=== PATIENT | male | born 1995 | race Caucasian/White ===

== ENCOUNTER 2022-02-23 13:31 | Emergency (ER) | payer OTHER, SELFPAY ==
[2022-02-23 14:33] VITALS: BP 136/78; PULSE 68; RESP 18; TEMP 37.1; O2SAT 99; BMI 39.3
[2022-02-23 15:07] LABS: MANUAL DIFF FLAG NO
[2022-02-23 15:08] LABS: Basophils Percent Auto 0.5 % (0-2); Eosinophils Absolute Auto 0.2 X10*3/uL (0.0-0.4); Eosinophils Percent Auto 2.2 % (0-4); Hematocrit 44.4 % (42.0-52.0); Hemoglobin 14.7 g/dl (14.0-18.0); Imm Gran Abs Auto 0.02 X10*3/uL (0.00-0.03); Imm Gran Pct Auto 0.3 % (0.0-0.4); Lymphocytes Absolute Auto 1.9 X10*3/uL (1.2-4.9); Lymphocytes Percent Auto 24.2 % (20-40); Mean Corpuscular HGB Conc 33.1 g/dl (31.0-36.0); Mean Corpuscular Hemoglobin 27.8 pg (27.0-33.0); Mean Corpuscular Volume 83.9 fL (80.0-98.0); Mean Platelet Volume 9.8 fL (9.4-12.4); Monocytes Absolute Auto 0.8 X10*3/uL (0.1-1.2); Neutrophils Absolute Auto 4.7 x10*3/uL (2.0-8.3); Neutrophils Percent Auto 61.8 % (45-73); Platelet Count 235 X10*3/uL (160-400); Red Blood Count 5.29 X10*6/uL (4.60-5.80); Red Cell Distribution Width 12.7 % (11.0-16.0); White Blood Count 7.6 X10*3/uL (4.8-10.8)
[2022-02-23 15:12] LABS: Appearance Urine CLEAR; Color Urine STRAW; Glucose Urine UA NEG (NEG); Leukocyte Esterase Urine NEG (NEG); Nitrite Urine NEG (NEG); Specific Gravity - Urine <= 1.005 (1.005-1.025); Urine Blood NEG (NEG); Urine Ketones NEG (NEG); Urine Protein NEG (NEG-TRACE)
[2022-02-23 15:13] LABS: INTERNATIONAL NORM RATIO 1.1 (0.9-1.1); Prothrombin Time 12.9 SEC (9.9-13.0)
[2022-02-23 15:16] LABS: Partial Thromboplastin Time 37.1 SEC (24.1-38.0)
[2022-02-23 15:25] LABS: Lactic Acid 1.2 mmol/L (0.5-2.0)
[2022-02-23 15:29] LABS: Alanine Aminotransferase 20 U/L (0-40); Albumin Level 4.3 g/dL (3.5-5.0); Alkaline Phosphatase 71 U/L (39-117); Anion Gap 13 (12-20); Aspartate Amino Transferase 17 U/L (5-37); Bilirubin Total 0.5 mg/dL (0.0-1.0); Blood Urea Nitrogen 12 mg/dL (9-16); Calcium 9.4 mg/dL (8.4-10.2); Carbon Dioxide 26 mmol/L (22-29); Chloride 105 mmol/L (96-108); Creatinine Clr Calc Pharmacy 162.8; Estimated Glomerular Filt Rate > 60; Glucose Random 105 mg/dL (60-115); Magnesium 2.1 mg/dL (1.6-2.6); Sodium 140 mmol/L (135-145); Total Protein 7.6 g/dL (6.5-8.0)
--- NOTE | 2022-02-23 16:21 | ED.GENADULT ---
HPI - General Adult General Chief complaint: Abdominal Pain Stated complaint: BLOODY STOOL, PAIN ABD Time Seen by Provider: 02/23/22 13:39 History of Present Illness HPI narrative: Patient is a 26-year-old male present today with having brown stool but when he wipes he sees some blood. Also noted some blood in the toilet bowl. History of similar episodes in past history of anal fissure in the past. Question history of hemorrhoids and a half. There is no fever no chills no systemic complaints. Patient denies any abdominal pain. Has positive formed stool that is brown. Patient from home. No foreign bodies. Related Data Home Medications Medication Instructions Recorded Confirmed cetirizine 10 mg tablet 10 mg PO DAILY PRN 01/07/22 02/12/22 betamethasone dipropionate 0.05 % 1 appl TOPICAL DAILY 02/12/22 02/12/22 topical ointment betamethasone valerate 0.1 % 1 appl TOPICAL DAILY 02/12/22 02/12/22 topical ointment glycopyrrolate 1 mg tablet 1 mg PO BID-TID PRN 02/12/22 02/12/22 (Lynne) Previous Rx's Medication Instructions Recorded blood pressure test kit-large #1 ea 02/12/22 fluticasone propionate 50 1 spray INTRANASAL DAILY 30 Days 02/12/22 mcg/actuation nasal #16 g spray,suspension (Flonase Allergy Relief) omeprazole 20 mg capsule,delayed 20 mg PO DAILY 14 Days #14 cap 02/12/22 release prednisone 10 mg tablet 10 mg PO DAILY 4 Days #4 tab 02/12/22 Allergies Allergy/AdvReac Type Severity Reaction Status Date / Time No Known Allergies Allergy Verified 02/23/22 14:33 [No Known Allergies*] Review of Systems Review of Systems: No fever no chills no chest pain or shortness breath no systemic Yes all other systems are reviewed and are negative PMFSH Past Medical History Attestation statement: The following information was validated with the patient. Medical History Body mass index [BMI] 40.0-44.9, adult Class 3 severe obesity due to excess calories with body mass index (BMI) of 40.0 to 44.9 in adult Infectious mononucleosis Surgical History S/P wisdom tooth extraction Family History Family History Mother Neurological finding Father FH: HTN (hypertension) Hyperthyroidism Sister Asthma Maternal Grandfather Heart attack, Onset Age: 55 Social History Social History Housing: House Alcohol intake: current Alcohol intake frequency: holidays/special occasions only Alcohol type: beer Patient Tobacco Use Status: Never used Tobacco e-Cigarette/Vaping Use: Former Use Substance Use Type: Marijuana service: No Current occupational status: employed 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 Oriented X3. No acute distress. Eyes: Pupils equal, round and reactive to light. ENT: Pharynx normal. Neck: Normal inspection. Neck supple. No lymph nodes noted. No crepitus CVS: Normal heart rate and rhythm. Pulses normal. Normal S1 and S2 Respiratory: No respiratory distress. Breath sounds normal. No Wheezing. No rales Abdomen: Soft and nontender. No rigidity. No distention. good BS x4 Skin: Skin warm and dry. Normal skin color. Normal skin turgor. Extremities: No lower extremity edema. Neurovascular intact to all extremities. No Lacerations. No Rash Neuro: Oriented X 3. No motor deficit. No sensory deficit. Moving all extermities. No slurred speech Medical Decision Making MDM Narrative Medical decision making narrative: Patient's hemoglobin is 14.5 normal. Well-appearing not on blood thinners. 26 years old abdomen soft nontender. Will have patient follow-up with primary physician outpatient basis question hemorrhoids internal. Question seizures. In stable condition with discharge Lab Data Lab results reviewed: Yes I reviewed the patient's lab results. Result diagrams: 02/23/22 15:00 02/23/22 15:00 Labs: Lab Results 02/23/22 02/23/22 02/23/22 Range/Units 15:00 15:00 15:00 WBC 7.6 (4.8-10.8) X10*3/uL RBC 5.29 (4.60-5.80) X10*6/uL Hgb 14.7 (14.0-18.0) g/dl Hct 44.4 (42.0-52.0) % MCV 83.9 (80.0-98.0) fL MCH 27.8 (27.0-33.0) pg MCHC 33.1 (31.0-36.0) g/dl RDW 12.7 (11.0-16.0) % Plt Count 235 (160-400) X10*3/uL MPV 9.8 (9.4-12.4) fL Immature Gran % (Auto) 0.3 (0.0-0.4) % Neut % (Auto) 61.8 (45-73) % Lymph % (Auto) 24.2 (20-40) % Carter % (Auto) 11.0 (2-11) % Eos % (Auto) 2.2 (0-4) % Baso % (Auto) 0.5 (0-2) % Lymph # (Auto) 1.9 (1.2-4.9) X10*3/uL Carter # (Auto) 0.8 (0.1-1.2) X10*3/uL Eos # (Auto) 0.2 (0.0-0.4) X10*3/uL Baso # (Auto) 0.0 (0.0-0.2) X10*3/uL Abs Immat Gran (auto) 0.02 (0.00-0.03) X10*3/uL Absolute Neuts (auto) 4.7 (2.0-8.3) x10*3/uL Absolute Nucleated RBC 0.000 (0.0-0.012) X10*3/uL Nucleated RBC % (auto) 0.0 (0.0-0.2) /100WBC PT 12.9 (9.9-13.0) SEC INR 1.1 (0.9-1.1) APTT 37.1 (24.1-38.0) SEC Sodium 140 (135-145) mmol/L Potassium 4.0 (3.3-5.1) mmol/L Chloride 105 (96-108) mmol/L Carbon Dioxide 26 (22-29) mmol/L Anion Gap 13 (12-20) BUN 12 (9-16) mg/dL Creatinine 0.89 (0.5-1.4) mg/dL Estim Creat Clear Calc 162.8 Estimated GFR > 60 Random Glucose 105 (60-115) mg/dL Lactic Acid (0.5-2.0) mmol/L Calcium 9.4 (8.4-10.2) mg/dL Magnesium 2.1 (1.6-2.6) mg/dL Total Bilirubin 0.5 (0.0-1.0) mg/dL AST 17 (5-37) U/L ALT 20 (0-40) U/L Alkaline Phosphatase 71 (39-117) U/L Total Protein 7.6 (6.5-8.0) g/dL Albumin 4.3 (3.5-5.0) g/dL Urine Color Urine Appearance Urine pH (5.0-8.0) Ur Specific Harrison (1.005-1.025) Urine Protein (NEG-TRACE) MG/DL Urine Glucose (UA) (NEG) MG/DL Urine Ketones (NEG) MG/DL Urine Blood (NEG) Urine Nitrite (NEG) Ur Leukocyte Esterase (NEG) 02/23/22 02/23/22 Range/Units 15:00 15:00 WBC (4.8-10.8) X10*3/uL RBC (4.60-5.80) X10*6/uL Hgb (14.0-18.0) g/dl Hct (42.0-52.0) % MCV (80.0-98.0) fL MCH (27.0-33.0) pg MCHC (31.0-36.0) g/dl RDW (11.0-16.0) % Plt Count (160-400) X10*3/uL MPV (9.4-12.4) fL Immature Gran % (Auto) (0.0-0.4) % Neut % (Auto) (45-73) % Lymph % (Auto) (20-40) % Carter % (Auto) (2-11) % Eos % (Auto) (0-4) % Baso % (Auto) (0-2) % Lymph # (Auto) (1.2-4.9) X10*3/uL Carter # (Auto) (0.1-1.2) X10*3/uL Eos # (Auto) (0.0-0.4) X10*3/uL Baso # (Auto) (0.0-0.2) X10*3/uL Abs Immat Gran (auto) (0.00-0.03) X10*3/uL Absolute Neuts (auto) (2.0-8.3) x10*3/uL Absolute Nucleated RBC (0.0-0.012) X10*3/uL Nucleated RBC % (auto) (0.0-0.2) /100WBC PT (9.9-13.0) SEC INR (0.9-1.1) APTT (24.1-38.0) SEC Sodium (135-145) mmol/L Potassium (3.3-5.1) mmol/L Chloride (96-108) mmol/L Carbon Dioxide (22-29) mmol/L Anion Gap (12-20) BUN (9-16) mg/dL Creatinine (0.5-1.4) mg/dL Estim Creat Clear Calc Estimated GFR Random Glucose (60-115) mg/dL Lactic Acid 1.2 (0.5-2.0) mmol/L Calcium (8.4-10.2) mg/dL Magnesium (1.6-2.6) mg/dL Total Bilirubin (0.0-1.0) mg/dL AST (5-37) U/L ALT (0-40) U/L Alkaline Phosphatase (39-117) U/L Total Protein (6.5-8.0) g/dL Albumin (3.5-5.0) g/dL Urine Color STRAW Urine Appearance CLEAR Urine pH 7.0 (5.0-8.0) Ur Specific Harrison <= 1.005 (1.005-1.025) Urine Protein NEG (NEG-TRACE) MG/DL Urine Glucose (UA) NEG (NEG) MG/DL Urine Ketones NEG (NEG) MG/DL Urine Blood NEG (NEG) Urine Nitrite NEG (NEG) Ur Leukocyte Esterase NEG (NEG) Discharge Plan Discharge Clinical Impression: Hemorrhoid Patient Disposition: Home, Self-Care Instructions: Hemorrhoids (ED) Prescriptions: No Action betamethasone valerate 0.1 % ointment 1 appl topical DAILY 0RF glycopyrrolate [Robinul] 1 mg tablet 1 mg PO BID-TID PRN0RF betamethasone dipropionate 0.05 % ointment 1 appl topical DAILY 0RF omeprazole 20 mg capsule,delayed release(DR/EC) 20 mg PO DAILY 14 Days Qty: 14 0RF (DME) blood pressure test kit-large Kit See Rx Instructions .Route Qty: 1 0RF Rx Instructions: As directed fluticasone propionate [Flonase Allergy Relief] 50 mcg/actuation spray,suspension 1 spray intranasal DAILY 30 Days Qty: 16 1RF Rx Instructions: administer into each nostril prednisone 10 mg tablet 10 mg PO DAILY 4 Days Qty: 4 0RF cetirizine 10 mg tablet 10 mg PO DAILY PRN (Reason: allergies) 0RF Referrals: Luke Begum PA-C [Primary Care Provider] -
== END 2022-02-23 16:56 | disposition home or self-care (01) ==
LOC: HO.ED 16:37
PROVIDERS: Physician Assistant Medical; Emergency Provider Emergency Medicine Emergency Medical Services; PCP Physician Assistant
DX: K64.9 Unspecified hemorrhoids (principal); K92.1 Melena; Z79.899 Other long term (current) drug therapy
CPT/HCPCS: 36415; 80053; 81003; 83605; 83735; 85025; 85610; 85730; 99283

== ENCOUNTER 2022-05-21 09:45 | Outpatient (REF) | payer OTHER, SELFPAY ==
[2022-05-21 11:00] LABS: Estimated Average Glucose 88 mg/dL; Hematocrit 45.9 % (42.0-52.0); Hemoglobin A1c % 4.7 %; Mean Corpuscular HGB Conc 32.7 g/dl (31.0-36.0); Mean Corpuscular Hemoglobin 28.1 pg (27.0-33.0); Mean Corpuscular Volume 86.1 fL (80.0-98.0); Mean Platelet Volume 10.5 fL (9.4-12.4); Platelet Count 197 X10*3/uL (160-400); Red Blood Count 5.33 X10*6/uL (4.60-5.80); Red Cell Distribution Width 12.8 % (11.0-16.0); White Blood Count 5.6 X10*3/uL (4.8-10.8)
[2022-05-21 11:50] LABS: Alanine Aminotransferase 19 U/L (0-40); Albumin Level 4.4 g/dL (3.5-5.0); Alkaline Phosphatase 59 U/L (39-117); Anion Gap 15 (12-20); Aspartate Amino Transferase 17 U/L (5-37); Bilirubin Total 0.7 mg/dL (0.0-1.0); Blood Urea Nitrogen 12 mg/dL (9-16); Calcium 9.5 mg/dL (8.4-10.2); Carbon Dioxide 26 mmol/L (22-29); Chloride 106 mmol/L (96-108); Estimated Glomerular Filt Rate > 60; Glucose Fasting 99 mg/dL (60-99); Potassium 4.5 mmol/L (3.3-5.1); Sodium 142 mmol/L (135-145); Total Protein 7.5 g/dL (6.5-8.0)
[2022-05-21 11:56] LABS: TSH reflex Free T4 1.08 uIU/mL (0.32-4.0)
[2022-05-23 13:25] LABS: Transglutaminase Ab IgG <1.0 U/mL; Transglutaminase IgA <1.0 U/mL
== END 2022-05-21 09:46 | disposition home or self-care (01) ==
LOC: HO.LAB 09:45
PROVIDERS: PCP Physician Assistant; Visit Provider Physician Assistant
DX: Z13.29 Encounter for screening for other suspected endocrine disorder (principal); R14.0 Abdominal distension (gaseous); K52.9 Noninfective gastroenteritis and colitis, unspecified
CPT/HCPCS: 36415; 80053; 83036; 84443; 85027; 86364

== ENCOUNTER 2023-05-11 14:12 | Outpatient (AMB) | payer OTHER, SELFPAY ==
--- NOTE | 2023-05-11 15:22 | MHC.OFFWIV ---
Intake Vital Signs 05/11/23 15:31 Weight 227 lb BP 130/80 Blood Pressure Location Lt brachial Position Sitting Pulse 71 Pulse Source Pulse Oximeter Temp 99.1 F Temp Source Oral Pulse Oximetry (%) 98 Oxygen Delivery Method Room Air Intake Visit Reasons: EP fever, throat [phone] Intake Note: Patient here for sore throat, fevers, aches, chills, slight chest congestion and slight cough for about 2 days. Patient Tobacco Use Status: Former Tobacco user (over 4 years ago.) Quit Date: 2018 Allergies No Known Allergies [No Known Allergies*] Allergy (Verified 05/11/23 15:23) Do you need a note to return to daycare/school/sports/work: Yes HPI EP fever, throat [phone] HPI Details Patient presents for a sick visit. Reporting symptoms of sinus congestion, sore throat and difficulty swallowing. Low-grade fever. No family member is sick. No recent travel. Patient reports symptoms of malaise and fatigue. [facility] Medical History (Updated 05/11/23 @ 15:55 by Bandar Edwards MD) Body mass index [BMI] 40.0-44.9, adult Class 3 severe obesity due to excess calories with body mass index (BMI) of 40.0 to 44.9 in adult Infectious mononucleosis Surgical History S/P wisdom tooth extraction Family History Mother Neurological finding Father FH: HTN (hypertension) Hyperthyroidism Sister Asthma Maternal Grandfather Heart attack, Onset Age: 55 Social History (Updated 02/25/23 @ 10:48 by Luke Begum PA-C) Housing: House Alcohol intake: current Alcohol intake frequency: a few times a week Alcohol type: beer Patient Tobacco Use Status: Former Tobacco user (over 4 years ago.) Quit Date: 2018 Tobacco use type: Cigarette e-Cigarette/Vaping Use: Currently Using Second Hand Smoke Exposure: Yes Substance Use Type: Marijuana service: No Current occupational status: employed 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 Cognitive needs: No Hearing needs: No Vision needs: Yes Physical Exam Vital Signs: Last Vital Signs Temp 99.1 F 05/11/23 15:31 Pulse 71 05/11/23 15:31 BP 130/80 05/11/23 15:31 Pulse Ox 98 05/11/23 15:31 Oxygen Delivery Method Room Air 05/11/23 15:31 Const General: cooperative and healthy appearing Nutritional Appearance: well nourished Orientation/consciousness: patient oriented x3 Limitations: no limitations HEENT Head: Yes normal to inspection Eyes General: appearance normal, both eyes and all related structures Neck Neck: Yes normal visual inspection Chest Chest palpation & inspection: normal palpation of entire chest wall Resp Effort & Inspection: normal respiratory effort Neuro General: patient oriented x3 Results AMB Rapid Strep AMB Rapid Strep Negative Last Edit by VIVIEN Thao on 05/11/23 15:39 Results Reviewed Results Reviewed: Laboratory Last Values Strep Scn [facility] Negative 05/11/23 15:38 Assessment & Plan Assessment & Plan (1) Upper respiratory tract infection: Code(s): J06.9 - Acute upper respiratory infection, unspecified Plan: Antibiotics ordered. Increase fluid intake. Tylenol for aches and pains. If symptoms worsen, follow-up here for a recheck. Orders: Orders SARS-CoV2/FLU/RSV Today R43.9 - Unspecified disturbances of smell and taste AMB Rapid Strep Screen Today Z13.9 - Encounter for screening, unspecified Coding Level of Care Code Est Pt Level 3 (90073) Diagnoses Upper respiratory tract infection J06.9
[2023-05-11 15:31] VITALS: BP 130/80; PULSE 71; TEMP 37.3; O2SAT 98
== END 2023-05-11 15:55 | disposition home or self-care (01) ==
PROVIDERS: PCP Physician Assistant; Visit Provider Internal Medicine
DX: J06.9 Acute upper respiratory infection, unspecified (principal); J02.9 Acute pharyngitis, unspecified
CPT/HCPCS: 87880; 99213

== ENCOUNTER 2023-05-11 17:22 | Outpatient (REF) | payer OTHER, SELFPAY ==
[2023-05-12 14:06] LABS: Influenza A PCR NEGATIVE (Negative); Influenza B PCR NEGATIVE (Negative); Resp Syncy Virus RNA Qual PCR NEGATIVE (Negative); SARS COV2 PCR INHOUSE NEGATIVE (Negative)
== END 2023-05-11 17:23 | disposition home or self-care (01) ==
LOC: HO.LAB 17:22
PROVIDERS: Visit Provider Internal Medicine
DX: Z20.822 Contact with and (suspected) exposure to COVID-19 (principal); R43.9 Unspecified disturbances of smell and taste
CPT/HCPCS: 0241U

== ENCOUNTER 2024-05-25 11:19 | Outpatient (AMB) | payer OTHER, SELFPAY ==
--- NOTE | 2024-05-25 10:44 | A.OFFPC_ITS ---
Vital Signs 05/25/24 11:22 Height 5 ft 9 in Weight 230 lb 8 oz BMI 34.0 BP 130/86 Blood Pressure Location Lt brachial Position Sitting Pulse 53 Pulse Source Pulse Oximeter Pulse Oximetry (%) 98 Oxygen Delivery Method Room Air Intake Visit Reasons: annual exam Intake Note: Patient is here today for a physical. 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 Accompanied by: Self / Same As Patient Allergies No Known Allergies [No Known Allergies*] Allergy (Verified 05/25/24 11:29) Medication List - Last Reconciled 05/25/24 by Luke Begum PA-C betamethasone valerate 0.1% 1 appl topical DAILY blood pressure test kit-large As directed cetirizine 10 mg PO DAILY PRN fluticasone propionate 50 mcg/actuation (Flonase Allergy Relief) 1 spray intranasal DAILY 30 days glycopyrrolate 1 mg PO BID 30 days Tobacco use date assessed: 05/25/24 Dental Screening Dental Screen Date: 05/25/24 Did you have a dental visit in the last 12 months?: Yes Did you have a dental problem in the last 6 months where you did not have access to dental care?: No Was dental information given to patient?: Patient has dentist HPI annual exam HPI Details Patient is a 29-year-old male here today for a PE. Patient has a past medical history significant for obesity, psoriasis,? al lergic rhinitis. Concerns--> has been having left 5th digit knuckle pain over the last few years. He does admit to doing weight lifting and working with his hands a lot. He can not recall any particular recent trauma to the left hand. He has not tried any NSAIDs for his pain at this point. He is interested in getting a x-ray of the area .. .. Psoriasis:? Skin medications mostly over hands to which he uses a topical steroid cream with good effect.? He is followed by biology manager . .. Allergic rhintis:? Suffers from seasonal allergic rhinitis.? He he does use Flonase and Zyrtec on a daily basis. Vaccine: UTD with tetanus, COVID annual flu vaccine FORMERLY [facility] Medical History Infectious mononucleosis Body mass index [BMI] 40.0-44.9, adult Class 3 severe obesity due to excess calories with body mass index (BMI) of 40.0 to 44.9 in adult Surgical History S/P wisdom tooth extraction Family History Mother Neurological finding Father FH: HTN (hypertension) Hyperthyroidism Sister Asthma Maternal Grandfather Heart attack, Onset Age: 55 Social History (Updated 05/25/24 @ 11:32 by Luke Begum PA-C) Housing: House Alcohol intake: current Alcohol intake frequency: a few times a week Alcohol type: beer Patient Tobacco Use Status: Former Tobacco user (over 4 years ago.) Tobacco use type: Cigarette e-Cigarette/Vaping Use: Currently Using Second Hand Smoke Exposure: Yes Substance Use Type: Marijuana service: No Current occupational status: employed 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 1. Little interest or pleasure in doing things: not at all 2. Feeling down, depressed, or hopeless: not at all 3. Trouble falling or staying asleep, or sleeping too much: not at all 4. Feeling tired or having little energy: not at all 5. Poor appetite or overeating: not at all 6. Feeling bad about yourself - or that you are a failure or have let yourself or your family down: not at all 7. Trouble concentrating on things, such as reading the newspaper or watching television: not at all 8. Moving or speaking so slowly that other people could have noticed. Or the opposite - being so fidgety or restless that you have been moving around a lot more than usual: not at all 9. Thoughts that you would be better off or of hurting yourself in some way: not at all Total score: 0 Depression Screening Interpretation: Negative Depression Screening Done: Yes 97362 - PHQ-9 Billing: Yes Source: Developed by Drs. Sonny Cruz, Cristina Ortega, Rafael Jo and colleagues, with an educational jamin from [employer]. Thrive Questionnaire Date Thrive assessed: 05/25/24 I am a: Patient What is your living situation today?: I have a steady place to live Within the past 12 months, did the food you bought not last and you didn't have the money to get more?: Never true Within the past 12 months, did you worry whether your food would run out before you got money to buy more?: Never true Do you have trouble paying for medicines?: No Do you have trouble getting transportation to medical appointments?: No Do you have trouble paying your heating and electricity bill?: No Do you have trouble taking care of your child, family member or friend?: No Do you have trouble with day-to-day activities such as bathing, preparing meals, shopping, managing finances, etc.?: No Are you currently unemployed and looking for a job?: No Are you interested in more education?: No Please select the resources that you would like help with: None Currently or been in a relationship where the following occur: No concerns rep orted THRIVE Score: 0 AUDIT C Alcohol Use Questionnaire (AUDIT-C) 1. How often do you have a drink containing alcohol?: 2-3 times a week 2. How many drinks containing alcohol do you have on a typical day when you are drinking?: 1 or 2 Total Score: 3 RANDI-7 AMB Questionnaire RANDI-7 Date RANDI - 7 assessed: 05/25/24 Feeling nervous, anxious, or on edge: 0 = Not at all Not being able to stop or control worryin = Not at all Worrying too much about different things: 0 = Not at all Trouble relaxin = Not at all Being so restless that it is hard to sit still: 0 = Not at all Becoming easily annoyed or irritable: 0 = Not at all Feeling afraid as if something awful might happen: 0 = Not at all Total RANDI-7 score (0-4 normal; 5-9 mild; 10-14 moderate; 15-21 severe): 0 Source: Developed by Drs. Sonny Cruz, Cristina Ortega, Rafael Jo and colleagues, with an educational jamin from [employer]. RANDI-7 Assessment Billing RANDI-7 Assessment Tool: RANDI-7 Assessment 61179 Review of Systems Const Denies body aches, Denies chills, Denies excessive sweating, Denies fatigue, Denies fever(s) and Denies headache(s) Eyes Denies blurry vision ENT Denies dysphagia, Denies vertigo, Denies dizziness, Denies headache(s), Denies hearing loss and Denies tinnitus Card Denies chest pain, Denies chest pain with activity, Denies syncope, Denies irregular heart rhythm and Denies dyspnea Resp Denies chest congestion, Denies cough, Denies hemoptysis, Denies dyspnea and Denies wheezing GI Denies abdominal pain, Denies melena, Denies hematochezia, Denies coffee ground emesis, Denies dysphagia, Denies diarrhea, Denies nausea and Denies vomiting Denies difficulty urinating, Denies dysuria, Denies urinary frequency, Denies urinary hesitancy and Denies urinary urgency Musc Denies arthralgias, Denies limited range of motion, Denies muscle cramps and Denies muscle weakness Skin/Breast Denies rash and Denies skin ulcer Neuro Denies Abnormal speech present, Denies confusion, Denies vertigo, Denies dizziness, Denies syncope, Denies headache(s), Denies memory loss and Denies seizure-like activity Psych Denies anxiety, Denies confusion, Denies depression, Denies memory loss, Denies panic attacks and Denies paranoia Endo Denies excessive sweating, Denies fatigue, Denies flushing, Denies polydipsia and Denies polyuria Aller/Immun Denies wheezing Physical exam (Primary Care) Vital Signs: Last Vital Signs Pulse 53 05/25/24 11:22 BP 130/86 05/25/24 11:22 Pulse Ox 98 05/25/24 11:22 Oxygen Delivery Method Room Air 05/25/24 11:22 BMI result Body Mass Index 34.0 Tobacco/Smoking Status: Tobacco use Status Tobacco use date assessed 05/25/24 05/25/24 11:29 Patient Tobacco Use Status Former Tobacco user (over 4 05/25/24 11:32 years ago.) Tobacco use type Cigarette 05/25/24 11:32 e-Cigarette/Vaping Use Currently Using 05/25/24 11:32 PHQ-9: PHQ-9 Score PHQ-9: Total score 0 05/25/24 11:33 Depression Screening Interpretation: Negative Thrive Assessment: Date of Thrive Assessment Date Thrive assessed 05/25/24 05/25/24 11:24 Currently or been in a relationship where the following occur: No concerns reported Const General: cooperative, comfortable, no acute distress, alert and awake; No confusion Orientation/consciousness: oriented to person, oriented to place, patient oriented x3 and No confusion HENMT Head: Yes normocephalic Ears: external ears normal and TM's normal bilaterally Face and sinus: No sinus tenderness Mouth: Normal oral and palatal mucosa present and tongue normal Teeth and gingiva: dentition normal and gingiva normal Throat: Yes posterior oropharynx normal, Yes tonsils normal and Yes uvula midline Eyes Conjunctivae: conjunctivae normal Sclerae: sclerae normal Pupils: Equal, round and reactive pupils present EOM: EOMs intact bilaterally Direct Ophthalmoscopy: No no photophobia Neck Neck: Yes no lymphadenopathy, No tender and Yes no JVD Thyroid: Thyroid normal Carotids: no bruits Chest Chest palpation & inspection: no tenderness Resp Effort & Inspection: normal respiratory effort, no audible wheezes, not labored and no stridor Auscultation: no crackles, no rales, no rhonchi and no wheezes Cardio Jugular venous distension: no JVD Rate: regular rate, not bradycardic and not tachycardic Rhythm: regular rhythm Bruits: no carotid bruits Peripheral pulses: Peripheral pulses 2+ throughout GI Inspection: Yes normal to inspection, No abdominal wall ecchymosis and No visible herniation Palpation (GI): Soft to palpation, nontender, no guarding, not rigid and No hepatosplenomegaly present Auscultation: normoactive bowel sounds General: Yes no CVA tenderness Back/Spine/Pelvis Back: no CVA tenderness and No back tenderness Cervical Spine: cervical ROM normal Thoracic/Lumbar Spine: thoracic and lumbar spine normal to inspection, straight leg raise negative bilaterally, No thoraco-lumbar ROM limited and No lumbar spinal tenderness Skin Lesions: no lesions Rashes: no rashes Wounds: no wounds Neuro General: oriented to person, oriented to place, patient oriented x3, CN's II-XI intact bilaterally and No confusion Cranial nerves: Yes Equal, round and reactive pupils present and Yes Normal accommodation reflex present Cognition (Neuro): normal cognition Speech: No Abnormal speech present Gait exam (Neuro): Normal gait present Motor exam (neuro): 5/5 motor strength present throughout Extrem Right upper extremity: full ROM; no cyanosis Left upper extremity: full ROM; no cyanosis Right lower extremity: no edema Left lower extremity: no edema Psych Appearance: grossly normal Mental Status: mental status grossly normal Affect: normal affect Attitude: cooperative Thought process: Normal thought process present Assessment and Plan Assessment & Plan (1) Annual physical exam: Code(s): Z00.00 - Encounter for general adult medical examination without abnormal findings (2) Psoriasis: Code(s): L40.9 - Psoriasis, unspecified Plan: 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 Continues to follow dermatology (3) Screening for diabetes mellitus (DM): Code(s): Z13.1 - Encounter for screening for diabetes mellitus (4) Allergic rhinitis: Code(s): J30.9 - Allergic rhinitis, unspecified Qualifiers: Allergic rhinitis seasonality: seasonal Allergic rhinitis trigger: pollen Qualified Code(s): J30.1 - Allergic rhinitis due to pollen Plan: Patient maintains his allergic rhinitis antihistamine and nasal spray. (5) Left hand tendonitis: Code(s): M77.8 - Other enthesopathies, not elsewhere classified Plan: As per HPI patient would like to get an x-ray of the affected joint to evaluate. We did offer occupational therapy and orthopedic referral for his possible tendinitis of the 5th digit flexor tendon though he would like to hold off now. Orders: Orders Microalbumin, Random (w Creat) Today I10 - Essential (primary) hypertension Comprehensive [place]. Panel Fast Today Z13.1 - Encounter for screening for diabetes mellitus Complete Blood Count no Diff Today Z13.1 - Encounter for screening for diabetes mellitus XR hand LT 2V Today M77.8 - Other enthesopathies, not elsewhere classified Medications: Refilled cetirizine take 1 tablet by mouth daily as needed for allergies 10 mg PO DAILY PRN 90 t abs 0RF allergies fluticasone propionate 50 mcg/actuation (Flonase Allergy Relief) administer into each nostril 1 spray intranasal DAILY 16 grams 3RF 30 days J30.9 - Allergic rhinitis, unspecified Coding Level of Care Code Est Pt Prev Care 18-39y(26457) Diagnoses Annual physical exam Z00.00 Psoriasis L40.9 Screening for diabetes mellitus (DM) Z13.1 Seasonal allergic rhinitis due to pollen J30.1 Allergic rhinitis seasonality: seasonal Allergic rhinitis trigger: pollen Left hand tendonitis M77.8 Additional Codes RANDI-7 Assessment Billing - RANDI-7 Assessment Tool: RANDI-7 Assessment 44887 ([id number])
[2024-05-25 11:22] VITALS: BP 130/86; PULSE 53; O2SAT 98; BMI 34.0
== END 2024-05-25 11:47 | disposition home or self-care (01) ==
PROVIDERS: PCP Physician Assistant; Visit Provider Physician Assistant
DX: Z00.00 Encounter for general adult medical examination without abnormal findings (principal); L40.9 Psoriasis, unspecified; Z13.1 Encounter for screening for diabetes mellitus; J30.1 Allergic rhinitis due to pollen; M77.8 Other enthesopathies, not elsewhere classified
CPT/HCPCS: 99395

== ENCOUNTER → 2025-02-07 14:52 | Outpatient (BNVA) | payer OTHER, SELFPAY | PROVIDERS: PCP Physician Assistant; Visit Provider Physician Assistant Medical | DX: M67.834 Other specified disorders of tendon, left wrist (principal) | CPT/HCPCS: 99202 ==

== ENCOUNTER → 2025-02-09 08:52 | Outpatient (BNVA) | payer OTHER, SELFPAY | PROVIDERS: PCP Physician Assistant; Visit Provider Physician Assistant Medical | DX: M67.834 Other specified disorders of tendon, left wrist (principal) | CPT/HCPCS: 73110; 99215 ==

== ENCOUNTER → 2025-02-16 10:09 | Outpatient (BNVA) | payer OTHER, SELFPAY | PROVIDERS: PCP Physician Assistant; Visit Provider Physician Assistant | DX: M67.834 Other specified disorders of tendon, left wrist (principal) | CPT/HCPCS: 99213 ==

== ENCOUNTER → 2025-03-02 10:01 | Outpatient (BNVA) | payer OTHER, SELFPAY | PROVIDERS: PCP Physician Assistant; Visit Provider Physician Assistant | DX: M67.834 Other specified disorders of tendon, left wrist (principal) | CPT/HCPCS: 99213 ==

== ENCOUNTER 2025-03-13 08:07 | Outpatient (REF) | payer OTHER, SELFPAY ==
--- NOTE | ~2025-03-13 | XR_ITS ---
CLINICAL HISTORY: M25.532 - Pain in left wrist 4 views left wrist, including scaphoid view Comparison: 02/09/2025 Findings: No fractures or dislocations No significant arthritic change No radiopaque foreign body Impression: Normal left wrist. No acute skeletal abnormality This document has been electronically signed by: Aubrey Streeter MD on 03/13/2025 21:38:38
--- OUTSIDE RECORDS SUMMARY | 2025-03-13 08:14 | XMS_ITS | Encounter Summary ---
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 Name Role Phone Jm Flores MD Primary Care Provider Unavailabl e Encounter Details Date Type Department Care Team (Late st Contact Info) Description 02/15/2010 Documentation [facility] [place] [facility] [address] [place] [address] Family Medicine, Physician [address] [place] [address] Social History Tobacco Use Types Packs/Day Years Used Date Smoking Tobacco: Never Assessed Sex and Gender Information Value Date Recorded Sex Assigned at Not on file Legal Sex Male 5:15 PM EDT Gender Identity Not on file Sexual Orientation Not on file documented as of this encounter Plan of Treatment Not on file documented as of this encounter Visit Diagnoses Not on filedocumented in this encounter Care Teams Double End Chucking 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
== END 2025-03-13 08:08 | disposition home or self-care (01) ==
LOC: HO.HOSX 08:07
DX: M25.532 Pain in left wrist (principal)
CPT/HCPCS: 73110; 99202

== ENCOUNTER 2025-03-13 08:15 | Outpatient (AMB) | payer OTHER, SELFPAY ==
[2025-03-13 08:21] VITALS: BMI 34.0
--- NOTE | 2025-03-13 08:21 | MHC.OFFVIS ---
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 Patient is here for evaluation of left ulnar wrist pain. 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 Patient complains today of numbness in his left thumb and middle finger. He also complains of occasional pain on the unlar aspect of the wrist as well as the dorsal aspect. Patient uses heat to manage pain as well as a velcro wrist brace. Denies finger locking. Denies prior injuries or surgeries to the left wrist. Patient is able to make a closed fist and extend all digits of the patient is able to make closed fist demonstrate no fracture or acute bony abnormality for both both extensor tendinitis of the left wrist and what appears to be the beginnings of lateral epicondylitis of the left elbow Allergies No Known Allergies [No Known Allergies*] Allergy (Verified 03/13/25 08:28) FOR[facility]LY [facility] Medical History Infectious mononucleosis Body mass index [BMI] 40.0-44.9, adult Class 3 severe obesity due to excess calories with body mass index (BMI) of 40.0 to 44.9 in adult Surgical History S/P wisdom tooth extraction Family History Mother Neurological finding Father FH: HTN (hypertension) Hyperthyroidism Sister Asthma Maternal Grandfather Heart attack, Onset Age: 55 Social History (Updated 03/13/25 @ 08:29 by CRISTOBAL Taylor) Housing: House Alcohol intake: current Alcohol intake frequency: a few times a week Alcohol type: beer Patient Tobacco Use Status: Former Tobacco user (over 4 years ago.) Tobacco use type: Cigarette e-Cigarette/Vaping Use: Currently Using Second Hand Smoke Exposure: Yes Substance Use Type: Marijuana service: No Current occupational status: employed 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 He first experienced injury about a month ago while lifting heavy cases at work, resulting in immediate sharp pain radiating from his fingers, through the wrist, and up the arm. Following this injury, he was diagnosed with severe tendinitis at [facility]. The patient reports improvements in pain but continues to experience residual discomfort and numbness in his fingers, which is sometimes centrally located in his wrist. He has been proactively engaging in occupational therapy and mentioned improved wrist motion, but with persistent discomfort during specific maneuvers like resisted extension and passive flexion, indicating potential extensor tendon involvement. The report of numbness from finger to elbow is concerning for nerve issues, particularly carpal or cubital tunnel syndromes. Despite the improvements with light-duty restrictions at work, symptoms of numbness continue, primarily in the left arm. Review of Systems - Musculoskeletal: Reports pain from fingers to wrist, persisting discomfort and numbness in fingers of left hand. - Neurological: Reports numbness/tingling from fingers to elbow. Denies similar symptoms on the right side. Systems reviewed and are negative except as per HPI and below Physical Exam - Musculoskeletal- Resisted wrist extension provokes discomfort; passive flexion also causes discomfort. Patient is able to make a closed fist and extend all digits of the left hand fully and without difficulty. Positive Cozen's test on the left - Neurological- Normal sensation reported in fingers upon touch, no sensory alterations noted during examination. Results - Imaging: X-ray of the wrist demonstrate no fracture or acute bony abnormality of the left wrist Procedure Plan The management plan for the patient includes continued occupational therapy to aid in rehabilitation for extensor tendinitis, with instructions to use the wrist splint only as needed for discomfort. An EMG and nerve conduction study have been ordered to evaluate numbness, possibly indicative of carpal or cubital tunnel syndromes. The patient should maintain activity as tolerated and avoid heavy lifting. If EMG results indicate a need, further interventions will be discussed. A negative result will necessitate reevaluation based on symptom persistence Patient was informed and verbally consented to the use of an ambient scribe for clinic note documentation during this visit. Discussion Notes I discussed with the patient the likely diagnoses of severe tendinitis and the suspicion of nerve entrapment syndromes, including potential carpal and cubital tunnel syndromes. The EMG and nerve conduction study were explained as crucial steps to confirm nerve involvement. I informed the patient that this test, while slightly uncomfortable, is necessary to pinpoint nerve issues. We discussed the potential outcomes and corresponding interventions based on test results. I emphasized the importance of continued occupational therapy for Both extensor tendinitis of the left wrist and what appears to be the beginnings of lateral epicondylitis of the left elbow, and wearing the splint only as needed. Further discussions involved work restrictions, suggesting light-duty tasks until symptoms improve. I ensured the patient understood that if symptoms persist beyond test results, reevaluation would occur at 6 mos Patient Instructions - Use wrist splint only when the wrist is bothering you. - Continue with occupational therapy as scheduled. - Avoid heavy lifting and adhere to light-duty work instructions. - Await a call for scheduling of the EMG and nerve conduction study. - Anticipate a follow-up appointment after receiving test results. - Report any significant worsening of symptoms immediately. Orders: Orders NE electromyogram (EMG) Today R20.0 - Anesthesia of skin, R20.2 - Paresthesia of skin XR wrist LT w scaphoid Today M25.532 - Pain in left wrist NE nerve conduction velocity Today R20.0 - Anesthesia of skin, R20.2 - Paresthesia of skin Coding Level of Care Code New Pt Level 3 (29542) Diagnoses Left hand tendonitis M77.8 Left lateral epicondylitis M77.12
== END 2025-03-13 08:43 | disposition home or self-care (01) ==
LOC: HO.HOS 08:15
PROVIDERS: PCP Physician Assistant
DX: M77.8 Other enthesopathies, not elsewhere classified (principal); M77.12 Lateral epicondylitis, left elbow
CPT/HCPCS: 99203

== ENCOUNTER → 2025-03-13 08:16 | Outpatient (BNV) | payer OTHER, SELFPAY | PROVIDERS: Visit Provider Radiology Diagnostic Radiology | DX: M25.532 Pain in left wrist (principal) | CPT/HCPCS: 73110 ==

== ENCOUNTER 2025-03-17 08:16 | Outpatient (RCR) | payer OTHER, SELFPAY ==
--- NOTE | 2025-02-22 09:54 | MHC.OT.EP ---
[address] [phone] Occupational Therapy Plan of Care Patient Name: Donavan Chaidez Jr Date of Evaluation: 02/22/25 Diagnosis: L ulnar wrist pain Pain Location: Pain Score: 5 Pain Scale Used: Numeric (0 - 10) Aggravating Factors: wrist rotation and heavy lifting Alleviating Factors: none reported ; pain has improved mildly in the past week Assessment: Pt is a 29 yr old R hand dominant male who injured his L hand on 02/07/25 when he was lifting a few 12 packs of seltzer while at work when he felt pain shoot from his wrist into the ulnar side of his hand and FA. Pt reports finishing work and then being [facility] [place] [facility] [place] He was diagnosed at first w/ tendonitis and given an damaris bandage and an ice pack. He then the following week he was given a wrist brace and had an X-ray which was negative for fractures. Pt has an appointment to see ortho on 03/13/25. He reports he is currently OOW due to his injury. Pt presents today w/ pain, mild swelling, weakness and decreased functional use of his L hand. Pt would benefit from skilled OT therapy to address these deficits and RTW SAFELY and w/out modifications. 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 Thank you once again for your referral.
--- NOTE | 2025-03-17 09:14 | MHC.OT.EP ---
[address] [phone] Occupational Therapy Plan of Care Patient Name: Donavan Chaidez Jr Date of Evaluation: 03/17/25 Diagnosis: L ulnar wrist pain Pain Location: Pain Score: 5 Pain Scale Used: Numeric (0 - 10) Aggravating Factors: wrist rotation and heavy lifting Alleviating Factors: none reported ; pain has improved mildly in the past week Assessment: Pt is a 29 yr old R hand dominant male who injured his L hand on 02/07/25 when he was lifting a few 12 packs of seltzer while at work when he felt pain shoot from his wrist into the ulnar side of his hand and FA. Pt reports finishing work and then being sent to [facility] [place]. He was diagnosed at first w/ tendonitis and given an damaris bandage and an ice pack. He then the following week he was given a wrist brace and had an X-ray which was negative for fractures. Pt has an appointment to see ortho on 03/13/25. He reports he is currently OOW due to his injury. Pt presents today w/ pain, mild swelling, weakness and decreased functional use of his L hand. Pt would benefit from skilled OT therapy to address these deficits and RTW SAFELY and w/out modifications. 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 Thank you once again for your referral.
== END 2025-03-17 09:14 | disposition home or self-care (01) ==
LOC: HO.OT 08:16
PROVIDERS: PCP Physician Assistant; Visit Provider Physician Assistant
DX: M25.532 Pain in left wrist (principal); S69.92XD Unspecified injury of left wrist, hand and finger(s), subsequent encounter
CPT/HCPCS: 97110; 97140; 97166; 97535

== ENCOUNTER 2025-05-16 13:15 | Outpatient (AMB) | payer OTHER, SELFPAY ==
[2025-05-16 13:20] VITALS: BMI 34.0
--- NOTE | 2025-05-16 13:20 | MHC.OFFVIS ---
Vital Signs 05/16/25 13:20 Height 5 ft 9 in Weight 230 lb BMI 34.0 Intake Visit Reasons: OV-LT Hand WC 02/07/25, EMG Review Intake Note: Blayne is a 30 year old right hand dominant male who presents today for an EMG review status post work related injury to the left hand, DOI: 02/07/25. EMG completed at [facility] on 04/03/25 showing a normal study. Patient reports his numbness and tingling have improved, ocassionally present on his left index finger DIP. Allergies No Known Allergies (No Known Allergies*) Allergy (Verified 05/16/25 13:21) HPI HPI OV-LT Hand WC 02/07/25, EMG Review: Details: Blayne is a 30 year old right hand dominant male who presents today for an EMG review status post work related injury to the left hand, DOI: 02/07/25. EMG completed at [facility] on 04/03/25 showing a normal study. Patient reports his numbness and tingling have improved, ocassionally present on his left index finger DIP. [facility] Medical History Infectious mononucleosis Body mass index [BMI] 40.0-44.9, adult Class 3 severe obesity due to excess calories with body mass index (BMI) of 40.0 to 44.9 in adult Surgical History S/P wisdom tooth extraction Family History Mother Neurological finding Father FH: HTN (hypertension) Hyperthyroidism Sister Asthma Maternal Grandfather Heart attack, Onset Age: 55 Social History (Updated 03/13/25 @ 08:29 by CRISTOBAL Taylor) Housing: House Alcohol intake: current Alcohol intake frequency: a few times a week Alcohol type: beer Patient Tobacco Use Status: Former Tobacco user (over 4 years ago.) Tobacco use type: Cigarette e-Cigarette/Vaping Use: Currently Using Second Hand Smoke Exposure: Yes Substance Use Type: Marijuana service: No Current occupational status: employed 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 Neuro: Normal sensation of the tips of all digits of the left hand at this time Vascular: Cap refill brisk Pain: No tenderness to palpation of the left wrist No pain with range of motion of the left wrist ROM: Patient is able to make a closed fist and extend all digits of the left hand fully Range of motion of the left wrist full and intact Skin: No lacerations or abrasions. General: No ecchymosis, erythema, or evidence of infection. Psych: Appears grossly normal Affect normal Attitude cooperative Assessment & Plan Assessment & Plan (1) Left hand tendonitis: Code(s): M77.8 - Other enthesopathies, not elsewhere classified Category: Medical (2) Left lateral epicondylitis: Code(s): M77.12 - Lateral epicondylitis, left elbow Category: Medical Plan 1. Left wrist tendinitis 2. Numbness and tingling of the left hand With symptom resolution since previous visit Patient appears to be recovering very well postoperatively Patient is educated about the typical recovery course Patient may return to work full duty with no restrictions at this time Patient understands this is amenable to this plan Follow-up as needed Coding Level of Care Code Est Pt Level 3 (00456) Diagnoses Left hand tendonitis M77.8 Left lateral epicondylitis M77.12
--- OUTSIDE RECORDS SUMMARY | 2025-05-16 14:27 | XMS_ITS | Encounter Summary ---
Author Organization [facility] Address [address] [place] [phone] Phone Care Team Providers Care Cyber Special Agent Name Role Phone Jm Flores MD Primary Care Provider Unavailabl e Encounter Details Date Type Department Care Team (Late st Contact Info) Description 02/15/[address] [facility] [place] [facility] [address] [place] [address] Family Medicine, Physician [address] [place] [address] Social History Tobacco Use Types Packs/Day Years [...] on filedocumented in this encounter Care Teams Cyber Special Agent Relationship Specialty Start Date End Date Jm Flores MD PCP - General 08/18/18 documented as of this encounter
--- OUTSIDE RECORDS SUMMARY | 2025-05-16 14:27 | XMS_ITS | Clinical Summary ---
Author Organization [facility] Address [address] [place] [phone] Phone Care Team Providers Care Scheduling Agent Name Role Phone Matt Neri MD Primary Care Provider Allergies Active Allergy Reactions Criticality Noted Date Comments Mite Extract 07/11/2019 Tree Pollen-[place] 07/11/2019 Medications cetirizine (ZYRTEC) 10 MG tablet TK 1 T PO D 5 06/12/2019 Active loratadine 10 mg Cap Take by mouth. 08/27/2016 Active Active Problems No known active problems Social History Tobacco Use Types Packs/Day Years Used Date Smoking Tobacco: Never Smokeless Tobacco: Never Alcohol Use Standard Drinks/Week Comments Yes 0 (1 standard drink = 0.6 oz pur e alcohol) ocassionally Education Answer Date Recorded Are you interested in more education? Not on vinnie e 01/23/2023 Are you concerned about learning? Not on file 01/23/2023 No 01/23/2023 No 01/23/2023 Digital Access Answer Date Recorded No 02/21/2023 No 02/21/2023 No 02/21/2023 Reliable internet access at home? Not on file 02/21/2023 Device with a working camera? Not on file Sex and Gender Information Value Date Recorded Sex Assigned at Not on file Legal Sex Male 3:14 PM EDT Gender Identity Not on file Sexual Orientation Not on file Last Filed Vital Signs Vital Sign Reading Time Taken Comments Blood Pressure 118/80 06/08/2022 2:58 PM EDT Pulse 65 06/08/2022 2:58 PM EDT Temperature 36.1 C (97 F) 06/08/2022 2:58 PM EDT Respiratory Rate 16 06/08/2022 2:58 PM EDT Oxygen Saturation 98% 06/08/2022 2:58 PM EDT Inhaled Oxygen Concentration - - Weight 113.4 kg (250 lb) 06/08/2022 2:58 PM EDT Height 177.8 cm (5' 10 ) 06/08/2022 2:58 PM EDT Body Mass Index 35.87 06/08/2022 2:58 PM EDT Plan of Treatment Health Maintenance Due Date Last Done Comments DEPRESSION SCREENING 2008 HEPATITIS C SCREENING 2014 HIV ONE-TIME SCREENING (18-65 YEARS) 2014 COVID-19 VACCINE (2023-25 season) 2024 Adult Td,Tdap Booster 03/09/2030 03/09/2020, 009 HIB VACCINES Completed 08/17/1997, 07/30, 1996, Additional history exists PNEUMOCOCCAL VACCINES (0-49 years) Aged Out 11/24/2000 No longer eligible based on patient's age to complete this topic HEPATITIS A VACCINES Completed 06/21/2015, 04/04/20 14 MENINGOCOCCAL VACCINES (ACWY) Aged Out 06/21/2015, 04/23/2009 No longer eligibl e based on patient's age to complete this topic SMOKING STATUS SCREENING (Once After 26 Yrs) Completed 06/16/2022 MENINGOCOCCAL VACCINES (B) Aged Out N o longer eligible based on patient's age to complete this topic Medical Devices Not on file Insurance [facility] S[employer] NET FULL BENEFITS [employer] NET FULL Member Subscriber Plan / Payer (Ef fective 2022-Present) Name:Donavan Chaidez Relation to Subscriber:Self Name:Donavan Chaidez Payer ID:Not on file Group ID:Not on file Type:Medicaid Address: [address] [employer] [facility] [employer] [place] [address] NET FULL Member Subscriber Plan / Payer (Ef fective 2022-Present) Name:Donavan Chaidez Relation to Subscriber:Self Name:Donavan Chaidez Payer ID:Not on file Group ID:Not on file Type:Medicaid Address: [address] [employer] [facility] [employer] HE[employer]AF[employer] NET FULL Member Subscriber Plan / Payer (Ef fective 2022-Present) Name:Donavan Chaidez Relation to Subscriber:Self Name:Donavan Chaidez Payer ID:Not on file Group ID:Not on file Type:Medicaid Address: [address] [employer] [facility] NET FULL Member Subscriber Plan / Payer (Ef fective 2022-Present) Name:Donavan Chaidez Relation to Subscriber:Self Name:Donavan Chaidez Payer ID:Not on file Group ID:Not on file Type:Medicaid Address: [address] [employer] [facility] [employer]AF[employer] NET FULL Member Subscriber Plan / Payer (Ef fective 2022-Present) Name:Donavan Chaidez Relation to Subscriber:Self Name:Donavan Chaidez Payer ID:Not on file Group ID:Not on file Type:Medicaid Address: [address] [employer] [facility] [employer] [facility] NET FULL Member Subscriber Plan / Payer (Ef fective 2022-Present) Name:Donavan Chaidez Relation to Subscriber:Self Name:Donavan Chaidez Payer ID:Not on file Group ID:Not on file Type:Medicaid Address: [address] [employer] [facility] [employer]AF[employer] NET FULL Member Subscriber Plan / Payer (Ef fective 2022-Present) Name:Donavan Chaidez Relation to Subscriber:Self Name:Donavan Chaidez Payer ID:Not on file Group ID:Not on file Type:Medicaid Address: [address] [employer] NET FULL Member Subscriber Plan / Payer (Ef fective 2022-Present) Name:Donavan Chaidez Relation to Subscriber:Self Name:Donavan Chaidez Payer ID:Not on file Group ID:Not on file Type:Medicaid Address: [address] [employer] [facility] [employer] Care Teams Scheduling Agent Relationship Specialty Start Date End Date Matt Neri MD PCP - General Internal Medicine 07/11/19 Additional Source Comments The information contained in this document represents components of the legal health record. It is not the complete legal health record.[facility]
== END 2025-05-16 13:47 | disposition home or self-care (01) ==
LOC: HO.HOS 13:16
DX: M77.8 Other enthesopathies, not elsewhere classified (principal); M77.12 Lateral epicondylitis, left elbow
CPT/HCPCS: 99213

== ENCOUNTER → 2025-05-16 13:15 | Outpatient (BNVA) | payer OTHER, SELFPAY | DX: M77.12 Lateral epicondylitis, left elbow (principal); M77.8 Other enthesopathies, not elsewhere classified | CPT/HCPCS: 99212 ==